=== PATIENT | female | born 1980 | race Caucasian/White ===

== ENCOUNTER 2016-10-28 17:57 | Emergency (ER) | payer BC ==
[2016-10-28] MEDS ORDERED: ORPHENADRINE 30 MG/ML 2 ML VIAL IM STA (19:00)
[2016-10-28] MEDS ORDERED: KETOROLAC 60 MG/2 ML VIAL IM STA (19:00)
--- NOTE | 2016-10-28 19:22 | ED ---
General Adult HPI - General Chief complaint: Abdominal Pain Stated complaint: left flank pain Time Seen by Provider: 10/28/16 18:43 Source: patient, RN notes reviewed Mode of arrival: ambulatory Limitations: no limitations - History of Present Illness Initial comments: 36-year-old male presents to the emergency Department chief complaint of right sided low back muscle spasm and pain. Patient states that this started just when she was moving some papers on her desk and slowly has continued to spasm. Patient states she sits still she does have some improvement to her symptoms but if she moves or stretches in a certain way the spasming will worsen. Patient states that it goes up and down the back. There is no radiation and into the legs. Patient denies any loss of bowel or bladder function. Patient states there is no falls traumas or injuries. Patient denies history of this in the past. Patient was concerned due to the spasming so she thought that she should be evaluated. Patient states she is not currently having any other symptoms at this time. Patient denies any recent fever, chills, shortness of breath, chest pain, abdominal pain, nausea vomiting, numbness or tingling, dysuria or hematuria, constipation or diarrhea, headaches or visual changes, or any other current symptoms. - Related Data Home Medications Medication Instructions Recorded Confirmed FLUoxetine HCL [PROzac] 40 mg PO DAILY 10/28/16 10/28/16 Multivitamins, Thera [Multivitamin 1 tab PO DAILY 10/28/16 10/28/16 (formulary)] Previous Rx's Medication Instructions Recorded Ibuprofen [Motrin] 600 mg PO Q6HR PRN #20 tab 10/28/16 Orphenadrine [Norflex] 100 mg PO Q12H #10 tablet.er 10/28/16 Allergies Allergy/AdvReac Type Severity Reaction Status Date / Time No Known Allergies Allergy Verified 10/28/16 19:00 Review of Systems ROS Statement: Those systems with pertinent positive or pertinent negative responses have been documented in the HPI. ROS Other: All systems not noted in ROS Statement are negative. Past Medical History Past Medical History: No Reported History History of Any Multi-Drug Resistant Organisms: None Reported Past Surgical History: Cholecystectomy, Tonsillectomy Past Psychological History: Depression Smoking Status: Never smoker Past Alcohol Use History: None Reported Past Drug Use History: None Reported General Exam - General Exam Comments Initial Comments: General: The patient is awake and alert, in no distress, and does not appear acutely ill. Eye: Pupils are equal, round. there is normal conjunctiva bilaterally. No signs of icterus. Ears, nose, mouth and throat: There are moist mucous membranes. Neck: The neck is supple, there is no tenderness. Cardiovascular: There is a regular rate and rhythm. No murmur, rub or gallop is appreciated. Respiratory: Lungs are clear to auscultation, respirations are non-labored, breath sounds are equal. No wheezes, stridor, rales, or rhonchi. Gastrointestinal: Soft, non-distended, non-tender abdomen without masses or organomegaly noted. There is no rebound or guarding present. No CVA tenderness. Bowel sounds are unremarkable. Back: There is no tenderness to palpation in the midline. There is some muscle 7 to the right. With range of motion patient does have the pain reiterated. Negative straight leg raise bilaterally. There is no obvious deformity. No rashes noted. Musculoskeletal: Normal ROM, no tenderness, There is no pedal edema. There is no calf tenderness or swelling. Sensation intact. Pulses equal bilaterally 2+. Neurological: CN II-XII intact, There are no obvious motor or sensory deficits. Coordination appears grossly intact. Speech is normal. Skin: Skin is warm and dry and no rashes or lesions are noted. Psychiatric: Cooperative, appropriate mood & affect, normal judgment. Limitations: no limitations Course Vital Signs 10/28/16 18:03 Temperature 99.6 F Pulse Rate 81 Respiratory 18 Rate Blood Pressure 109/75 O2 Sat by Pulse 97 Oximetry - Reevaluation(s) Reevaluation #1: 10/28/16 19:29 This time patient is reassessed and states she is feeling better and ready to go home. Medical Decision Making - Medical Decision Making 36-year-old female presents emergency Department chief complaint of lumbar muscle strain. At this time we was patient muscle axes for home. We discussed Motrin Tylenol for pain. Patient is in agreement plan all questions have been answered. This time the patient will be discharged home at this time. We discussed care follow-up return parameters all questions. They state [facility] management plan. They will be discharged home. Disposition Clinical Impression: Lumbar strain Disposition: HOME SELF-CARE Condition: Stable Instructions: Low Back Strain (ED), Lower Back Exercises (ED) Additional Instructions: Please use medication as discussed. Please follow up with family doctor if symptoms have not improved over the next two days. Please return to the emergency room if your symptoms increase or worsen or for any other concerns. Prescriptions: Ibuprofen [Motrin] 600 mg PO Q6HR PRN #20 tab PRN Reason: Pain Orphenadrine [Norflex] 100 mg PO Q12H #10 tablet.er Referrals: Filiberto Trujillo MD [Primary Care Provider] - 1-2 days Time of Disposition: 19:29
[2016-10-28 19:39] VITALS: BP 107/70; PULSE 63; RESP 16; TEMP 98
== END 2016-10-28 19:35 | disposition home or self-care (01) ==
LOC: EC 17:57
DX: S39.012A Strain of muscle, fascia and tendon of lower back, initial encounter (principal); F32.9 Major depressive disorder, single episode, unspecified; Z79.899 Other long term (current) drug therapy; X50.0XXA Overexertion from strenuous movement or load, initial encounter
CPT/HCPCS: 96372 ×3; 99283 ×2; J2360; J1885

== ENCOUNTER → 2017-09-16 | Outpatient (CLI) | payer BC ==
--- NOTE | 2017-09-16 14:55 | MM ---
Reason for exam: screening (asymptomatic). Baseline mammogram. History: Family history of breast cancer in maternal aunt at age 60. Took hormonal contraceptives beginning at age 13. Physical Findings: Nurse did not find any significant physical abnormalities on exam. MG Screening Mammo w CAD Bilateral CC and MLO view(s) were taken. There are scattered fibroglandular densities. There is no discrete abnormality. These results were verbally communicated with the patient and result sheet given to the patient on 09/16/17. ASSESSMENT: Negative, BI-RAD 1 RECOMMENDATION: Routine screening mammogram of both breasts in 1 year.
== END | disposition home or self-care (01) ==
LOC: RADMAMWWP 13:45
PROVIDERS: ATTEND Family Medicine
DX: Z12.31 Encounter for screening mammogram for malignant neoplasm of breast (principal)
CPT/HCPCS: 77067

== ENCOUNTER → 2018-09-23 | Outpatient (CLI) | payer BC ==
--- NOTE | 2018-09-25 07:56 | MM ---
Reason for exam: screening (asymptomatic). Last mammogram was performed 1 year ago. History: Family history of breast cancer in maternal aunt at age 60. Took hormonal contraceptives beginning at age 13. Physical Findings: A clinical breast exam by your physician is recommended on an annual basis and results should be correlated with mammographic findings. MG 3D Screening Mammo W/Cad Bilateral CC and MLO view(s) were taken. Prior study comparison: September 16, 2017, bilateral MG screening mammo w CAD. There are scattered fibroglandular densities. Lateral asymmetric density left breast is more defined and incompletely disperses on 3D. ASSESSMENT: Incomplete: need additional imaging evaluation, BI-RAD 0 RECOMMENDATION: Special view mammogram of the left breast. 3D If lesion persists on supplemental views, image directed ultrasound is recommended. [facility] will attempt to contact patient to return for supplemental views and ultrasound if indicated.
== END | disposition home or self-care (01) ==
LOC: RADMAMWWP 14:42
PROVIDERS: ATTEND Family Medicine
DX: Z12.31 Encounter for screening mammogram for malignant neoplasm of breast (principal)
CPT/HCPCS: 77063; 77067

== ENCOUNTER → 2019-04-21 | Outpatient (CLI) | payer BC ==
--- NOTE | 2019-04-21 11:55 | MM ---
Reason for exam: follow-up at short interval from prior study. Last mammogram was performed 7 months ago. History: Family history of breast cancer in maternal aunt at age 60. Took hormonal contraceptives beginning at age 13. Physical Findings: Nurse did not find any significant physical abnormalities on exam. MG 3D Diag Mammo W/Cad LT CC, MLO, and ML view(s) were taken of the left breast. Prior study comparison: September 29, 2018, left breast MG 3d work up w/cad LT. September 23, 2018, bilateral MG 3d screening mammo w/cad. There are scattered fibroglandular densities. These results were verbally communicated with the patient and result sheet given to the patient on 04/21/19. ASSESSMENT: Benign, BI-RAD 2 RECOMMENDATION: Return to routine screening mammogram schedule for both breasts. Back on schedule.
== END | disposition home or self-care (01) ==
LOC: RADMAMWWP 09:28
PROVIDERS: ATTEND Family Medicine
DX: R92.8 Other abnormal and inconclusive findings on diagnostic imaging of breast (principal)
CPT/HCPCS: 77061; 77065

== ENCOUNTER 2019-07-06 09:17 | Inpatient (IN) | payer BC ==
[2019-07-06] MEDS ORDERED: ONDANSETRON 4 MG/2 ML VIAL IVP STA (09:46)
[2019-07-06] MEDS ORDERED: SODIUM CHLORIDE 0.9% 1,000 ML IV ONE ×3 (09:46→17:28)
[2019-07-06] MEDS ORDERED: MORPHINE SULFATE 4 MG/ML SYRINGE IVP STA (09:46)
--- NOTE | 2019-07-06 09:50 | ED ---
Abdominal Pain HPI - General Source: patient Mode of arrival: ambulatory Limitations: no limitations <Meagahn Badillo - Last Filed: 07/06/19 13:06> <Mari Michael - Last Filed: 07/10/19 11:25> - General Chief Complaint: Abdominal Pain Stated Complaint: lower abd pain Time Seen by Provider: 07/06/19 09:28 - History of Present Illness Initial Comments: 38-year-old female presenting today for chief complaint of right lower quadrant abdominal pain. Patient states on Friday she developed a felt like upper abdominal cramping. She states it slowly migrated from the upper abdomen to lower bilaterally and then finally into the right lower quadrant. Patient states that she has not recorded fever at home but was told at an outpatient clinic that she presented to today that she had a low-grade fever. Patient sta audra that she has been nauseous she has had episodes where she is almost vomited but no active vomiting, patient states that she has had some loose stools. Patient denies melena, hematochezia. She states she has less appetite. Patient denies any URI symptoms. Patient has no other complaints. Patient HR elevated on arrival. No surgeon. (Meaghan Badillo) - Related Data Home Medications Medication Instructions Recorded Confirmed Acetaminophen Tab [Tylenol] 650 mg PO Q4H PRN 07/06/19 07/06/19 [id number] 2 tab PO Q4HR PRN 07/06/19 07/06/19 [Excedrin] Cholecalciferol [Vitamin D3 (25 1,000 unit PO HS 07/06/19 07/06/19 Mcg = 1000 Iu)] Ibuprofen [Motrin Ib] 800 mg PO Q8H PRN 07/06/19 07/06/19 Mag Hydrox/Aluminum Hyd/Simeth 30 ml PO DAILY PRN 07/06/19 07/06/19 [Mylanta Maximum Strength Liq] Simethicone [Gas-X] 375 mg PO Q4H PRN 07/06/19 07/06/19 Vortioxetine Hydrobromide 20 mg PO HS 07/06/19 07/06/19 [Trintellix] buPROPion XL [Wellbutrin XL] 150 mg PO HS 07/06/19 07/06/19 Previous Rx's Medication Instructions Recorded Docusate [Colace] 100 mg PO DAILY #30 capsule 07/08/19 HYDROcodone/APAP 5-325MG [Flushing 1 each PO Q6HR PRN #12 tab 07/08/19 5-325] Levofloxacin [Levaquin] 500 mg PO DAILY 3 Days #3 tab 07/08/19 Allergies Allergy/AdvReac Type Severity Reaction Status Date / Time No Known Allergies Allergy Verified 07/06/19 10:36 Review of Systems ROS Other: All systems not noted in ROS Statement are negative. <JustinoMeaghan L - Last Filed: 07/06/19 13:06> ROS Other: All systems not noted in ROS Statement are negative. <Mari Michael - Last Filed: 07/10/19 11:25> ROS Statement: Those systems with pertinent positive or pertinent negative responses have been documented in the HPI. Past Medical History Past Medical History: No Reported History History of Any Multi-Drug Resistant Organisms: None Reported Past Surgical History: Cholecystectomy, Tonsillectomy Past Psychological History: Anxiety, Depression Smoking Status: Never smoker Past Alcohol Use History: None Reported Past Drug Use History: None Reported - Past Family History Father Family Medical History: No Reported History Additional Family Medical History / Comment(s): Father is healthy Mother Family Medical History: No Reported History Additional Family Medical History / Comment(s): Mother is healthy <IshanjazmynMeaghan L - Last Filed: 07/06/19 13:06> General Exam Limitations: no limitations <Meaghan Badillo - Last Filed: 07/06/19 13:06> - General Exam Comments Initial Comments: General: The patient is awake and alert, appears uncomfortable Eye: +3 mm pupils are equal, round and reactive to light, extra-ocular movements are intact. No nystagmus. There is normal conjunctiva bilaterally. No signs of icterus. Ears, nose, mouth and throat: There are moist mucous membranes and no oral lesions. Neck: The neck is supple, there is no tenderness or JVD. Cardiovascular: There is a regular rate and rhythm. No murmur, rub or gallop is appreciated. Respiratory: Lungs are clear to auscultation, respirations are non-labored, breath sounds are equal. No wheezes, stridor, rales, or rhonchi. Gastrointestinal: Soft, non-distended, exquistely tender to palpation of the entire abdomen but particularly the RLQ without masses or organomegaly noted. There is rebound and guarding. Musculoskeletal: Normal ROM, no tenderness. Strength 5/5. Sensation intact. Radial pulses equal bilaterally 2+. Neurological: A&O x 3. CN II-XII intact grossly, There are no obvious motor or sensory deficits. Coordination appears grossly intact. Speech is normal. Skin: Skin is warm and dry and no rashes or lesions are noted. Psychiatric: Cooperative, appropriate mood & affect, normal judgment. (Meaghan Bdaillo) Course Vital Signs 07/06/19 07/06/19 09:19 11:47 Temperature 99.6 F 99.0 F Pulse Rate 129 H 76 Respiratory 18 16 Rate Blood Pressure 131/84 101/66 O2 Sat by Pulse 94 L 99 Oximetry Medical Decision Making - Lab Data Result diagrams: 07/06/19 09:38 07/06/19 09:38 <Meaghan Badillo - Last Filed: 07/06/19 13:06> - Lab Data Result diagrams: 07/07/19 05:44 07/08/19 06:02 <Mari Michael - Last Filed: 07/10/19 11:25> - Medical Decision Making 38-year-old female presenting with classic symptoms of appendicitis including no appetite, low-grade fever, migratory right lower quadrant abdominal pain. Patient did have signs of rebound tenderness and guarding. Leukocytosis. CT did not have distinct views of the appendix however there was appendicolith as well as secondary signs suggestive of acute appendicitis. Patient initiated on zosyn, blood culture pending. No surgeon request/recent previous. Dr Stephens accepted case. Pt last at yesterday evening > 12 hours. Pt transferred to floor in stable condition appearing well, nontoxic. Dr. Michael who spoke with Dr Stephens was agreeable to care plan. Pt is nonsmoker. (Meaghan Badillo) I was available for consultation in the emergency department. The history and physical exam were done by the midlevel provider. I was consulted for this patients care. I reviewed the case with the midlevel provider and based on t heir presentation of the patient, I agree with the assessment, medical decision making and plan of care as documented. I discussed the case with Dr. Stephens who accepted the admission of the patient. She will be made NPO for planned surgical intervention. Chart was dictated using [employer] dictation software. Attempts were made to correct any dictation errors however some typographical errors may persist. (Mari Michael) - Lab Data Lab Results 07/06/19 07/06/19 07/06/19 Range/Units 09:38 09:38 09:38 WBC 16.0 H (3.8-10.6) k/uL RBC 4.53 (3.80-5.40) m/uL Hgb 13.8 (11.4-16.0) gm/dL Hct 40.6 (34.0-46.0) % MCV 89.7 (80.0-100.0) fL MCH 30.4 (25.0-35.0) pg MCHC 33.9 (31.0-37.0) g/dL RDW 12.5 (11.5-15.5) % Plt Count 260 (150-450) k/uL Neutrophils % 84 % Lymphocytes % 9 % Monocytes % 5 % Eosinophils % 2 % Basophils % 0 % Neutrophils # 13.4 H (1.3-7.7) k/uL Lymphocytes # 1.4 (1.0-4.8) k/uL Monocytes # 0.8 (0-1.0) k/uL Eosinophils # 0.3 (0-0.7) k/uL Basophils # 0.0 (0-0.2) k/uL Sodium 135 L (137-145) mmol/L Potassium 3.9 (3.5-5.1) mmol/L Chloride 102 (98-107) mmol/L Carbon Dioxide 22 (22-30) mmol/L Anion Gap 11 mmol/L BUN 10 (7-17) mg/dL Creatinine 0.94 (0.52-1.04) mg/dL Est GFR (CKD-EPI)AfAm 88 (>60 ml/min/1.73 sqM) Est GFR (CKD-EPI)NonAf 76 (>60 ml/min/1.73 sqM) Glucose 116 H (74-99) mg/dL Plasma Lactic Acid Villa (0.7-2.0) mmol/L Calcium 8.9 (8.4-10.2) mg/dL Total Bilirubin 1.0 (0.2-1.3) mg/dL AST 23 (14-36) U/L ALT 23 (4-34) U/L Alkaline Phosphatase 90 (38-126) U/L Total Protein 7.6 (6.3-8.2) g/dL Albumin 4.3 (3.5-5.0) g/dL Amylase 64 (30-110) U/L Lipase 49 (23-300) U/L Urine Color Urine Appearance (Clear) Urine pH (5.0-8.0) Ur Specific Fenton (1.001-1.035) Urine Protein (Negative) Urine Glucose (UA) (Negative) Urine Ketones (Negative) Urine Blood (Negative) Urine Nitrite (Negative) Urine Bilirubin (Negative) Urine Urobilinogen (<2.0) mg/dL Ur Leukocyte Esterase (Negative) Urine RBC (0-5) /hpf Urine WBC (0-5) /hpf Ur Squamous Epith Cells (0-4) /hpf Urine Bacteria (None) /hpf Urine Mucus (None) /hpf Urine Yeast (Budding) (None) /hpf Urine HCG, Qual Not Detected (Not Detectd) 07/06/19 07/06/19 07/07/19 Range/Units 09:38 09:38 05:44 WBC 11.8 H (3.8-10.6) k/uL RBC 3.76 L (3.80-5.40) m/uL Hgb 11.4 (11.4-16.0) gm/dL Hct 34.2 (34.0-46.0) % MCV 90.9 (80.0-100.0) fL MCH 30.4 (25.0-35.0) pg MCHC 33.5 (31.0-37.0) g/dL RDW 12.4 (11.5-15.5) % Plt Count 219 (150-450) k/uL Neutrophils % 92 % Lymphocytes % 4 % Monocytes % 3 % Eosinophils % 0 % Basophils % 0 % Neutrophils # 10.9 H (1.3-7.7) k/uL Lymphocytes # 0.5 L (1.0-4.8) k/uL Monocytes # 0.3 (0-1.0) k/uL Eosinophils # 0.1 (0-0.7) k/uL Basophils # 0.0 (0-0.2) k/uL Sodium (137-145) mmol/L Potassium (3.5-5.1) mmol/L Chloride (98-107) mmol/L Carbon Dioxide (22-30) mmol/L Anion Gap mmol/L BUN (7-17) mg/dL Creatinine (0.52-1.04) mg/dL Est GFR (CKD-EPI)AfAm (>60 ml/min/1.73 sqM) Est GFR (CKD-EPI)NonAf (>60 ml/min/1.73 sqM) Glucose (74-99) mg/dL Plasma Lactic Acid Villa 0.9 (0.7-2.0) mmol/L Calcium (8.4-10.2) mg/dL Total Bilirubin (0.2-1.3) mg/dL AST (14-36) U/L ALT (4-34) U/L Alkaline Phosphatase (38-126) U/L Total Protein (6.3-8.2) g/dL Albumin (3.5-5.0) g/dL Amylase (30-110) U/L Lipase (23-300) U/L Urine Color Dark Brown Urine Appearance Turbid H (Clear) Urine pH 6.0 (5.0-8.0) Ur Specific Fenton 1.031 (1.001-1.035) Urine Protein 2+ H (Negative) Urine Glucose (UA) Negative (Negative) Urine Ketones 2+ H (Negative) Urine Blood Large H (Negative) Urine Nitrite Negative (Negative) Urine Bilirubin 1+ H (Negative) Urine Urobilinogen 2.0 (<2.0) mg/dL Ur Leukocyte Esterase Negative (Negative) Urine RBC 39 H (0-5) /hpf Urine WBC 6 H (0-5) /hpf Ur Squamous Epith Cells 49 H (0-4) /hpf Urine Bacteria Occasional H (None) /hpf Urine Mucus Many H (None) /hpf Urine Yeast (Budding) Rare H (None) /hpf Urine HCG, Qual (Not Detectd) 07/07/19 07/08/19 Range/Units 05:44 06:02 WBC (3.8-10.6) k/uL RBC (3.80-5.40) m/uL Hgb (11.4-16.0) gm/dL Hct (34.0-46.0) % MCV (80.0-100.0) fL MCH (25.0-35.0) pg MCHC (31.0-37.0) g/dL RDW (11.5-15.5) % Plt Count (150-450) k/uL Neutrophils % % Lymphocytes % % Monocytes % % Eosinophils % % Basophils % % Neutrophils # (1.3-7.7) k/uL Lymphocytes # (1.0-4.8) k/uL Monocytes # (0-1.0) k/uL Eosinophils # (0-0.7) k/uL Basophils # (0-0.2) k/uL Sodium 135 L 138 (137-145) mmol/L Potassium 4.2 3.8 (3.5-5.1) mmol/L Chloride 107 111 H (98-107) mmol/L Carbon Dioxide 21 L 20 L (22-30) mmol/L Anion Gap 7 7 mmol/L BUN 12 14 (7-17) mg/dL Creatinine 0.75 0.81 (0.52-1.04) mg/dL Est GFR (CKD-EPI)AfAm >90 >90 (>60 ml/min/1.73 sqM) Est GFR (CKD-EPI)NonAf >90 >90 (>60 ml/min/1.73 sqM) Glucose 128 H 99 (74-99) mg/dL Plasma Lactic Acid Villa (0.7-2.0) mmol/L Calcium 7.9 L 7.7 L (8.4-10.2) mg/dL Total Bilirubin 0.6 (0.2-1.3) mg/dL AST 18 (14-36) U/L ALT 18 (4-34) U/L Alkaline Phosphatase 63 (38-126) U/L Total Protein 5.5 L (6.3-8.2) g/dL Albumin 2.8 L (3.5-5.0) g/dL Amylase (30-110) U/L Lipase (23-300) U/L Urine Color Urine Appearance (Clear) Urine pH (5.0-8.0) Ur Specific Fenton (1.001-1.035) Urine Protein (Negative) Urine Glucose (UA) (Negative) Urine Ketones (Negative) Urine Blood (Negative) Urine Nitrite (Negative) Urine Bilirubin (Negative) Urine Urobilinogen (<2.0) mg/dL Ur Leukocyte Esterase (Negative) Urine RBC (0-5) /hpf Urine WBC (0-5) /hpf Ur Squamous Epith Cells (0-4) /hpf Urine Bacteria (None) /hpf Urine Mucus (None) /hpf Urine Yeast (Budding) (None) /hpf Urine HCG, Qual (Not Detectd) Disposition Is patient prescribed a controlled substance at d/c from ED?: No Time of Disposition: 11:07 Decision to Admit Reason: Admit from EC Decision Date: 07/06/19 Decision Time: 11:07 <Meaghan Badillo - Last Filed: 07/06/19 13:06> <Mari Michael - Last Filed: 07/10/19 11:25> Clinical Impression: Appendicitis, Abdominal pain Disposition: ADMITTED IP TO THIS HOSP Condition: Stable
[2019-07-06 09:55] LABS: Basophils % (A) 0 %; Eosinophils # (A) 0.3 k/uL (0-0.7); Eosinophils % (A) 2 %; HCT 40.6 % (34.0-46.0); HGB 13.8 gm/dL (11.4-16.0); Lymphocytes # (A) 1.4 k/uL (1.0-4.8); Lymphocytes % (A) 9 %; MCH 30.4 pg (25.0-35.0); MCHC 33.9 g/dL (31.0-37.0); MCV 89.7 fL (80.0-100.0); Mean Platelet Volume 7.9; Monocytes # (A) 0.8 k/uL (0-1.0); Monocytes % (A) 5 %; Neutrophils # (A) 13.4 k/uL (1.3-7.7); Neutrophils % (A) 84 %; Platelet Count 260 k/uL (150-450); RBC 4.53 m/uL (3.80-5.40); RDW 12.5 % (11.5-15.5)
[2019-07-06 10:04] LABS: Albumin 4.3 g/dL (3.5-5.0); Calcium 8.9 mg/dL (8.4-10.2); Potassium 3.9 mmol/L (3.5-5.1); Total Protein 7.6 g/dL (6.3-8.2)
[2019-07-06] MEDS ORDERED: PIPERACILLIN-TAZOBACTAM 3.375 GM in SODIUM CHLORIDE 0.9% 100 ML IVPB STA (10:05)
[2019-07-06 10:10] LABS: Appearance,Urine Turbid (Clear); Bacteria,Urine Occasional /hpf; Bilirubin,Urine 1+ (Negative); Blood,Urine Large (Negative); Budding Yeast,Urine Rare /hpf; Color,Urine Dark Brown; Glucose,Urine (UA) Negative (Negative); Ketones,Urine 2+ (Negative); Leukocyte Esterase,Urine Negative (Negative); Mucus,Urine Many /hpf; Nitrite,Urine Negative (Negative); Protein,Urine 2+ (Negative); RBC,Urine 39 /hpf (0-5); Specific Gravity,Urine 1.031 (1.001-1.035); Squamous Epithelial Cell,Urine 49 /hpf (0-4); WBC,Urine 6 /hpf (0-5)
[2019-07-06] MEDS: SODIUM CHLORIDE 0.9% 1,000 ML IV SCH ×4 (10:44→22:55)
--- NOTE | 2019-07-06 11:01 | CT ---
EXAMINATION TYPE: CT abdomen pelvis w con DATE OF EXAM: 07/06/2019 COMPARISON: NONE HISTORY: 38-year-old female RLQ pain TECHNIQUE: Contiguous axial scanning of the abdomen and pelvis following administration of 100 ml Iso krystin 300 IV contrast. Delayed images through the kidneys and coronal/sagittal reconstructions perform ed. CT DLP: 1679.2 mGycm Automated exposure control for dose reduction was used. FINDINGS: LUNG BASES: No significant abnormality is appreciated. LIVER/GB: Liver mildly enlarged at 18.0 cm. There may be mild fatty infiltration. No focal liver lesi on or biliary ductal dilatation. Gallbladder surgically absent. Portal venous system is patent. PANCREAS: No significant abnormality is seen. SPLEEN: No significant abnormality is seen. ADRENALS: No significant abnormality is seen. KIDNEYS: Approximate 3 nonobstructive left renal calculi measuring up to 3 mm. Symmetric uptake of co ntrast in both sides. LYMPH NODES: No mesenteric or retroperitoneal lymphadenopathy. BOWEL: There is a 1 cm calcification in the right lower quadrant suggestive of an appendicolith. The bowel anatomy is not clearly delineated due to clustered fluid-containing loops. There is some soft tissue thickening in this region and moderate inflammatory fat stranding. No abnormal fluid collectio n is identified. No extraluminal air is seen. PELVIS: Uterus is anteverted. Bilateral short devices are present. Both ovaries are visualized. 2.6 c m dominant follicle or functional cyst in left ovary. Mild cul-de-sac free fluid could be reactive to the right lower quadrant inflammation or could be physiologic. 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 Degenerative disc disease above and L4- L5 with bulging disc. IMPRESSION: 1. APPENDIX IS DIFFICULT TO DELINEATE DUE TO CLUSTERED AND FLUID-FILLED BOWEL LOOPS IN THE RIGHT LOWE R QUADRANT. SOME OF THESE LOOPS HAVE WALL THICKENING AND A 1 CM APPENDICOLITH IS PRESENT ALONG WITH M ODERATE INFLAMMATORY FAT STRANDING. UNDERLYING ACUTE APPENDICITIS IS HIGHLY SUSPECTED. NO FREE AIR OR ABSCESS IS SEEN. 2. MILD CUL-DE-SAC FREE FLUID COULD BE REACTIVE TO THE INFLAMMATION OR COULD BE PHYSIOLOGIC. 3. NONOBSTRUCTIVE LEFT RENAL CALCULI MEASURING UP TO 3 MM.
[2019-07-06] MEDS ORDERED: MORPHINE SULFATE 4 MG/ML SYRINGE IV PRN (11:08)
[2019-07-06] MEDS ORDERED: ONDANSETRON 4 MG/2 ML VIAL IVP PRN (11:08)
[2019-07-06] MEDS ORDERED: NALOXONE 0.4 MG/ML 1 ML VIAL IV PRN ×2 (11:08→18:05)
--- NOTE | 2019-07-06 14:36 | P.GSHP ---
History of Present Illness HISTORY OF PRESENTING ILLNESS This is a pleasant 38-year-old female past history significant for cholecystectomy and bunionectomy. She states last week early Friday morning she started noticing a discomfort in the epigastric region that was radiating across her entire abdomen and down into the pelvic region on the right side. She thought she was experiencing gas type pains and took some MiraLAX. She did have significant amounts of bowel movements however she continued to have discomfort in the right lower quadrant of her abdomen. This was associated with mild nausea and intermittent episodes of diaphoresis and chills at home. She did not check her temperature. She denies any vomiting. She continues to have mild discomfort in the right lower quadrant that is mildly alleviated by lying on her right side or applying pressure to the area. She currently denies any nausea and has no vomiting. She was initiated on IV fluids and given Zosyn in the emergency department. Laboratory data reviewed, WBC 16, neutrophils 13.4, sodium 135, potassium 3.9, creatinine 0.94, AST 23, ALT 23, alkaline phosphatase 90, amylase 64. Urine HCG negative. REVIEW OF SYSTEMS At the time of my exam: CONSTITUTIONAL: Denies fever or chills. CARDIOVASCULAR: Denies chest pain, shortness of breath, orthopnea, PND or palpitations. RESPIRATORY: Denies cough. GASTROINTESTINAL: Complains of abdominal pain. Denies diarrhea, constipation, nausea or vomiting. MUSCULOSKELETAL: Denies myalgias. NEUROLOGIC: Denies numbness, tingling or weakness. ENDOCRINE: Denies fatigue, weight change, polydipsia or polyurina. GENITOURINARY: Denies burning, hematuria or urgency with micturation. HEMATOLOGIC: Denies history of anemia or bleeding. PHYSICAL EXAMINATION Blood pressure 109/68 heart rate 84 afebrile and maintaining oxygen saturation on room air. CONSTITUTIONAL: No apparent distress. HEENT: Head is normocephalic. Pupils are equal, round. Sclerae anicteric. Mucous membranes of the mouth are moist. CHEST EXAMINATION: Lungs are clear to auscultation. No chest wall tenderness is noted on palpation or with deep breathing. HEART EXAMINATION: Regular rate and rhythm. S1, S2 heard. No murmurs, gallops or rub. ABDOMEN: Soft, nontender. Positive bowel sounds. EXTREMITIES: 2+ peripheral pulses, no lower extremity edema and no calf tenderness. NEUROLOGIC EXAMINATION: Patient is awake, alert and oriented x3. ASSESSMENT Acute appendicitis Leukocytosis Neutrophilia PLAN Patient has been reported for laparoscopic appendectomy with Dr. Stephens this afternoon. I have discussed the risks, benefits and alternative therapies for the above-mentioned procedure and for both sedation/analgesia as well as necessary blood product administration, if indicated, as they pertain to this patient. The patient has indicated understanding and acceptance of the risks and procedures discussed. Questions have been answered appropriately and she is agreeable to move forward with the above-stated procedure. Nurse Practitioner note has been reviewed, I agree with a documented findings and plan of care. Patient was seen and examined. Past Medical History Past Medical History: No Reported History Additional Past Medical History / Comment(s): Bronchitis as a child History of Any Multi-Drug Resistant Organisms: None Reported Past Surgical History: Cholecystectomy, Tonsillectomy Additional Past Surgical History / Comment(s): L foot bunionectomy, essure procedure Past Anesthesia/Blood Transfusion Reactions: No Reported Reaction Past Psychological History: Anxiety, Depression Smoking Status: Never smoker Past Alcohol Use History: None Reported Past Drug Use History: None Reported - Past Family History Father Family Medical History: No Reported History Additional Family Medical History / Comment(s): Father is healthy Mother Family Medical History: No Reported History Additional Family Medical History / Comment(s): Mother is healthy Medications and Allergies Home Medications Medication Instructions Recorded Confirmed Type Acetaminophen Tab [Tylenol] 650 mg PO Q4H PRN 07/06/19 07/06/19 History [id number] 2 tab PO Q4HR PRN 07/06/19 07/06/19 History [Excedrin] Cholecalciferol [Vitamin D3 (25 1,000 unit PO HS 07/06/19 07/06/19 History Mcg = 1000 Iu)] Ibuprofen [Motrin Ib] 800 mg PO Q8H PRN 07/06/19 07/06/19 History Mag Hydrox/Aluminum Hyd/Simeth 30 ml PO DAILY PRN 07/06/19 07/06/19 History [Mylanta Maximum Strength Liq] Simethicone [Gas-X] 375 mg PO Q4H PRN 07/06/19 07/06/19 History Vortioxetine Hydrobromide 20 mg PO HS 07/06/19 07/06/19 History [Trintellix] buPROPion XL [Wellbutrin Xl] 150 mg PO HS 07/06/19 07/06/19 History Allergies Allergy/AdvReac Type Severity Reaction Status Date / Time No Known Allergies Allergy Verified 07/06/19 10:36 Surgical - Exam Vital Signs Temp Pulse Resp BP Pulse Ox 99.6 F 129 H 18 131/84 94 L 07/06/19 09:19 07/06/19 09:19 07/06/19 09:19 07/06/19 09:19 07/06/19 09:19 Results - Labs 07/06/19 09:38 07/06/19 09:38 Abnormal Lab Results - Last 24 Hours (Table) 07/06/19 07/06/19 07/06/19 Range/Units 09:38 09:38 09:38 WBC 16.0 H (3.8-10.6) k/uL Neutrophils # 13.4 H (1.3-7.7) k/uL Sodium 135 L (137-145) mmol/L Glucose 116 H (74-99) mg/dL Urine Appearance Turbid H (Clear) Urine Protein 2+ H (Negative) Urine Ketones 2+ H (Negative) Urine Blood Large H (Negative) Urine Bilirubin 1+ H (Negative) Urine RBC 39 H (0-5) /hpf Urine WBC 6 H (0-5) /hpf Ur Squamous Epith Cells 49 H (0-4) /hpf Urine Bacteria Occasional H (None) /hpf Urine Mucus Many H (None) /hpf Urine Yeast (Budding) Rare H (None) /hpf Diabetes panel 07/06/19 Range/Units 09:38 Sodium 135 L (137-145) mmol/L Potassium 3.9 (3.5-5.1) mmol/L Chloride 102 (98-107) mmol/L Carbon Dioxide 22 (22-30) mmol/L BUN 10 (7-17) mg/dL Creatinine 0.94 (0.52-1.04) mg/dL Glucose 116 H (74-99) mg/dL Calcium 8.9 (8.4-10.2) mg/dL AST 23 (14-36) U/L ALT 23 (4-34) U/L Alkaline Phosphatase 90 (38-126) U/L Total Protein 7.6 (6.3-8.2) g/dL Albumin 4.3 (3.5-5.0) g/dL Calcium panel 07/06/19 Range/Units 09:38 Calcium 8.9 (8.4-10.2) mg/dL Albumin 4.3 (3.5-5.0) g/dL Pituitary panel 07/06/19 Range/Units 09:38 Sodium 135 L (137-145) mmol/L Potassium 3.9 (3.5-5.1) mmol/L Chloride 102 (98-107) mmol/L Carbon Dioxide 22 (22-30) mmol/L BUN 10 (7-17) mg/dL Creatinine 0.94 (0.52-1.04) mg/dL Glucose 116 H (74-99) mg/dL Calcium 8.9 (8.4-10.2) mg/dL Adrenal panel 07/06/19 Range/Units 09:38 Sodium 135 L (137-145) mmol/L Potassium 3.9 (3.5-5.1) mmol/L Chloride 102 (98-107) mmol/L Carbon Dioxide 22 (22-30) mmol/L BUN 10 (7-17) mg/dL Creatinine 0.94 (0.52-1.04) mg/dL Glucose 116 H (74-99) mg/dL Calcium 8.9 (8.4-10.2) mg/dL Total Bilirubin 1.0 (0.2-1.3) mg/dL AST 23 (14-36) U/L ALT 23 (4-34) U/L Alkaline Phosphatase 90 (38-126) U/L Total Protein 7.6 (6.3-8.2) g/dL Albumin 4.3 (3.5-5.0) g/dL
[2019-07-06] MEDS ORDERED: HYDROmorphone 0.5 MG/0.5 ML SYRINGE IVP PRN (15:38)
[2019-07-06] MEDS ORDERED: LIDOCAINE 1% (10MG/ML) FOR IV START INTRADERMA PRN (15:38)
[2019-07-06] MEDS ORDERED: ONDANSETRON 4 MG/2 ML VIAL ONE (17:28)
[2019-07-06] MEDS ORDERED: BUPIVACAIN-EPI 0.25%-1:200,000 30 ML VIAL SQ ONE (17:28)
[2019-07-06] MEDS ORDERED: KETOROLAC 30 MG/ML 1 ML VIAL ONE (17:28)
[2019-07-06] MEDS ORDERED: MIDAZOLAM 2 MG/2 ML VIAL ONE (17:28)
[2019-07-06] MEDS ORDERED: SUCCINYLCHOLINE CHLORIDE 100 MG/5 ML SYR IV ONE (17:28)
[2019-07-06] MEDS ORDERED: ceFAZolin 1,000 MG VIAL IVPB ONE (17:28)
[2019-07-06] MEDS ORDERED: fentaNYL (PF) 50 MCG/ML 2 ML AMP ONE (17:28)
[2019-07-06] MEDS ORDERED: PROPOFOL 10 MG/ML 20 ML VIAL IV ONE (17:28)
[2019-07-06] MEDS ORDERED: NEOSTIGMINE 1 MG/ML 10 ML VIAL ONE (17:28)
[2019-07-06] MEDS ORDERED: LACTATED RINGERS 1,000 ML IV ONE ×2 (17:53→18:05)
[2019-07-06] MEDS ORDERED: HYDROcodone/APAP 5-325MG 1 EACH TAB PO PRN (18:05)
[2019-07-06] MEDS ORDERED: ACETAMINOPHEN TAB 325 MG TAB PO PRN (18:05)
--- NOTE | 2019-07-06 18:05 | P.OP ---
Date of Procedure: 07/06/19 Preoperative Diagnosis: (Acute appendicitis Postoperative Diagnosis: Acute appendicitis with microperforation and abscess Procedure(s) Performed: Laparoscopic appendectomy Anesthesia: HARRIET Surgeon: Kevin Stephens Estimated Blood Loss (ml): 5 Pathology: other (Appendix) Condition: stable Disposition: PACU Description of Procedure: The patient's placed on the operating table in the supine position. The patient received general anesthesia. The abdomen was prepped and draped in the usual sterile fashion. The skin was anesthetized 1% local Xylocaine at the trocar sites. Using an 11 blade the skin was incised at the umbilicus. The umbilicus was grasped with a Giovana clamp and then a Veress needle was placed into the peritoneal cavity. Position of the Veress needle was confirmed with positive drop test. After adequate insufflation a 5 mm trocar was placed into the peritoneal cavity. The abdomen was further insufflated. And then the laparoscope was placed in the peritoneal cavity. Next a 5 mm trocar was placed in the midline suprapubic position. And then a 10 mm trocar was placed in the midline epigastric position. The patient was rotated with the right side up and in Trendelenburg. The appendix was visualized. The appendix appeared to be inflamed. There was evidence of microperforation. The abscess cavity was entered. This was aspirated. The appendix was grasped and then using the Harmonic scissors the mesoappendix was divided. A PDS Endoloop was then placed around the base of the appendix. And then the appendix was divided using Harmonic scissors. The appendix was placed into an Endo Catch and brought out through the 10 mm trocar site. The abdomen was irrigated. There is no bleeding seen. The trochars withdrawn. The skin was closed interrupted 3-0 Monocryl suture. Dermabond dressing was applied. Patient was sent to recovery room in stable condition.
[2019-07-06] MEDS: LACTATED RINGERS 1,000 ML IV SCH (18:34)
[2019-07-06] MEDS ORDERED: PIPERACILLIN-TAZOBACTAM 3.375 GM in SODIUM CHLORIDE 0.9% 100 ML IVPB SCH (21:47)
--- NOTE | 2019-07-06 21:48 | P.CONS ---
History of Present Illness - Reason for Consult Consult date: 07/06/19 Medical management Requesting physician: Kevin Stephens - Chief Complaint Abdominal pain - History of Present Illness Consultation: This is a pleasant 38-year-old patient of Dr. Cooley. Patient 4 days ago started of with pain in the upper abdomen. Patient progressed to go down to the right lower quadrant in the groin area. Progressively gotten worse. Patient expresses some chills and fevers at home. Also nausea. Presented to ER yesterday morning. Computed tomography scan of the abdomen showed moderate inflammation. Patient was taken to the operating room today. Discovered to have acute appendicitis with microperforation and abscess. Patient has a drain in place. Pain is now controlled. Review of systems: GEN.: Fever and chills EYES: None HEENT: None NECK: None RESPIRATORY: None CARDIOVASCULAR: None GASTROINTESTINAL: As above, occasional heartburn GENITOURINARY: None MUSCULOSKELETAL: None LYMPHATICS: None HEMATOLOGICAL: None PSYCHIATRY: None NEUROLOGICAL: Trouble sleeping Past medical history to include: Anxiety depression Social history: Does not smoke or drink alcohol. . Homemaker Physical examination: VITAL SIGNS: 99.9, 83, 16, 105/69, 95% on 2 L GENERAL: [BMI 37.9, laying in bed not in distress. EYES: Pupils equal. Conjunctiva normal. HEENT: External appearance of nose and ears normal, oral cavity grossly normal. NECK: JVD not raised; masses not palpable. HEART: First and second heart sounds are normal; no edema. LUNGS: Respiratory rate normal; clear to auscultation. ABDOMEN: Soft, tender, suprapubic drain, liver spleen not palpable, no masses palpable. PSYCH: Alert and oriented x3; mood and affect normal. NEUROLOGICAL: Cranial nerves grossly intact; no facial asymmetry, power and sensation grossly intact. LYMPHATICS: No lymph nodes palpable in the axilla and neck INVESTIGATIONS, reviewed in the clinical context: White count 16 hemoglobin 13.8 platelets 260 progression 3.9 creatinine 0.94 Computed tomography scan of the abdomen-evidence of appendix inflammation, left kidney stone Assessment: -Acute appendicitis with perforation and abscess status post appendectomy and has a drain in place -Obesity BMI 37.9 -GERD -Chronic idiopathic insomnia -Depression and anxiety not otherwise specified Plan: Patient getting IV fluids. We'll give Lovenox for DVT prophylaxis. Pain control was place. Patient's antidepressant anxiety medications resumed. We'll add Zosyn. Also Flagyl. Care was discussed with the patient question were answered. Thank you Dr. Stephens Past Medical History Past Medical History: No Reported History Additional Past Medical History / Comment(s): Bronchitis as a child History of Any Multi-Drug Resistant Organisms: None Reported Past Surgical History: Cholecystectomy, Tonsillectomy Additional Past Surgical History / Comment(s): L foot bunionectomy, essure procedure Past Anesthesia/Blood Transfusion Reactions: No Reported Reaction Past Psychological History: Anxiety, Depression Smoking Status: Never smoker Past Alcohol Use History: None Reported Past Drug Use History: None Reported - Past Family History Father Family Medical History: No Reported History Additional Family Medical History / Comment(s): Father is healthy Mother Family Medical History: No Reported History Additional Family Medical History / Comment(s): Mother is healthy Medications and Allergies Home Medications Medication Instructions Recorded Confirmed Type Acetaminophen Tab [Tylenol] 650 mg PO Q4H PRN 07/06/19 07/06/19 History [id number]-[id number]-[id number] 2 tab PO Q4HR PRN 07/06/19 07/06/19 History [Excedrin] Cholecalciferol [Vitamin D3 (25 1,000 unit PO HS 07/06/19 07/06/19 History Mcg = 1000 Iu)] Ibuprofen [Motrin Ib] 800 mg PO Q8H PRN 07/06/19 07/06/19 History Mag Hydrox/Aluminum Hyd/Simeth 30 ml PO DAILY PRN 07/06/19 07/06/19 History [Mylanta Maximum Strength Liq] Simethicone [Gas-X] 375 mg PO Q4H PRN 07/06/19 07/06/19 History Vortioxetine Hydrobromide 20 mg PO HS 07/06/19 07/06/19 History [Trintellix] buPROPion XL [Wellbutrin Xl] 150 mg PO HS 07/06/19 07/06/19 History Allergies Allergy/AdvReac Type Severity Reaction Status Date / Time No Known Allergies Allergy Verified 07/06/19 10:36 Physical Exam Vitals: Vital Signs Temp Pulse Pulse Pulse Resp BP BP 07/06/19 19:49 75 97/63 07/06/19 19:23 92 96/68 07/06/19 18:53 99.9 F H 83 16 105/69 07/06/19 18:39 83 16 106/59 07/06/19 18:25 79 16 112/67 07/06/19 18:10 97.5 F L 70 20 115/67 07/06/19 12:39 98.8 F 84 17 109/68 07/06/19 11:47 99.0 F 76 16 101/66 07/06/19 09:19 99.6 F 129 H 18 131/84 Pulse Ox 07/06/19 19:49 95 07/06/19 19:23 94 L 07/06/19 18:53 95 07/06/19 18:39 97 07/06/19 18:25 98 07/06/19 18:10 97 07/06/19 12:39 94 L 07/06/19 11:47 99 07/06/19 09:19 94 L Intake and Output 07/06/19 07/06/19 07/06/19 06:59 14:59 22:59 Intake Total 400 1100 Balance 400 1100 Intake: IV 1100 Intake, IV Titration 400 Amount Sodium Chloride 0.9% 1, 400 000 ml @ 100 mls/hr IV . Q10H IZA Rx#:[id number] Other: # Voids 1 Weight 113.035 kg Results CBC & Chem 7: 07/06/19 09:38 07/06/19 09:38 Labs: Abnormal Lab Results - Last 24 Hours (Table) 07/06/19 07/06/19 07/06/19 Range/Units 09:38 09:38 09:38 WBC 16.0 H (3.8-10.6) k/uL Neutrophils # 13.4 H (1.3-7.7) k/uL Sodium 135 L (137-145) mmol/L Glucose 116 H (74-99) mg/dL Urine Appearance Turbid H (Clear) Urine Protein 2+ H (Negative) Urine Ketones 2+ H (Negative) Urine Blood Large H (Negative) Urine Bilirubin 1+ H (Negative) Urine RBC 39 H (0-5) /hpf Urine WBC 6 H (0-5) /hpf Ur Squamous Epith Cells 49 H (0-4) /hpf Urine Bacteria Occasional H (None) /hpf Urine Mucus Many H (None) /hpf Urine Yeast (Budding) Rare H (None) /hpf
[2019-07-06] MEDS: VORTIOXETINE HYDROBROMIDE 20 MG TABLET PO SCH (22:37)
[2019-07-06] MEDS: buPROPion XL 150 MG TAB.ER.24H PO SCH (22:37)
[2019-07-06] MEDS: metroNIDAZOLE-NS PMX 500 MG in SALINE 1 100ML.BAG IVPB SCH (22:39)
[2019-07-06] MEDS: KETOROLAC 30 MG/ML 1 ML VIAL IVP SCH (22:56)
[2019-07-07] MEDS: KETOROLAC 30 MG/ML 1 ML VIAL IVP SCH ×5 (01:20→23:18)
[2019-07-07] MEDS: metroNIDAZOLE-NS PMX 500 MG in SALINE 1 100ML.BAG IVPB SCH ×5 (04:45→23:19)
[2019-07-07] MEDS: PIPERACILLIN-TAZOBACTAM 3.375 GM in SODIUM CHLORIDE 0.9% 100 ML IVPB SCH ×3 (05:25→21:37)
[2019-07-07 05:58] LABS: Basophils % (A) 0 %; Eosinophils # (A) 0.1 k/uL (0-0.7); Eosinophils % (A) 0 %; HCT 34.2 % (34.0-46.0); HGB 11.4 gm/dL (11.4-16.0); Lymphocytes # (A) 0.5 k/uL (1.0-4.8); Lymphocytes % (A) 4 %; MCH 30.4 pg (25.0-35.0); MCHC 33.5 g/dL (31.0-37.0); MCV 90.9 fL (80.0-100.0); Mean Platelet Volume 7.7; Monocytes # (A) 0.3 k/uL (0-1.0); Monocytes % (A) 3 %; Neutrophils # (A) 10.9 k/uL (1.3-7.7); Neutrophils % (A) 92 %; Platelet Count 219 k/uL (150-450); RBC 3.76 m/uL (3.80-5.40); RDW 12.4 % (11.5-15.5); WBC 11.8 k/uL (3.8-10.6)
[2019-07-07 06:09] LABS: ALT 18 U/L (4-34); AST 18 U/L (14-36); African American GFR (CKD) >90 (>60 ml/min/1.73 sqM); Albumin 2.8 g/dL (3.5-5.0); Alkaline Phosphatase 63 U/L (38-126); Anion Gap 7 mmol/L; Blood Urea Nitrogen 12 mg/dL (7-17); Calcium 7.9 mg/dL (8.4-10.2); Carbon Dioxide 21 mmol/L (22-30); Chloride 107 mmol/L (98-107); Glucose 128 mg/dL (74-99); Non-African American GFR(CKD) >90 (>60 ml/min/1.73 sqM); Potassium 4.2 mmol/L (3.5-5.1); Sodium 135 mmol/L (137-145); Total Bilirubin 0.6 mg/dL (0.2-1.3); Total Protein 5.5 g/dL (6.3-8.2)
[2019-07-07] MEDS: SODIUM CHLORIDE 0.9% 1,000 ML IV SCH ×4 (08:24→21:38)
[2019-07-07] MEDS: ENOXAPARIN 40 MG/0.4 ML SYRINGE SQ SCH (08:38)
[2019-07-07 10:22] VITALS: BMI 37.8
--- NOTE | 2019-07-07 13:40 | P.PN ---
Subjective HISTORY OF PRESENTING ILLNESS Patient is seen and examined resting currently sitting up in bed in no acute distress. She denies symptoms of abdominal pain. She has no nausea or vomiting. She has been up to the restroom and urinated once. No bowel movement or passing gas. She tolerated a clear liquid breakfast this morning. Laboratories reviewed, WBC 11.8, hemoglobin 11.4, platelets 219, sodium 135, potassium 4.2, creatinine 0.75. 115 mL of serosanguineous drainage from the RONEN drain. PHYSICAL EXAMINATION Blood pressure 99/69 heart rate 63 afebrile maintaining oxygen saturation on nasal cannula CONSTITUTIONAL: No apparent distress. HEENT: Head is normocephalic. Pupils are equal, round. Sclerae anicteric. Mucous membranes of the mouth are moist. ABDOMEN: Soft, nontender. RONEN drain in place with stressing at the site clean dry and intact. Serosanguineous fluid noted in the RONEN drain. NEUROLOGIC EXAMINATION: Patient is awake, alert and oriented x3. ASSESSMENT Acute appendicitis with microperforation and abscess, status post arthroscopic appendectomy. Postoperative day #1. Leukocytosis Neutrophilia PLAN Advance diet as tolerated. Continue antibiotics and pain control. Drain care per nursing staff. The above impression and plan of care have been discussed and directed by the signing physician. Ashley Kumari, nurse practitioner, acting as scribe for signing physician. Objective - Vital Signs Vital signs: Vital Signs Temp 98.6 F 07/07/19 05:21 Pulse 63 07/07/19 08:00 Resp 16 07/07/19 08:00 BP 99/69 07/07/19 05:21 Pulse Ox 95 07/07/19 05:21 Intake & Output 07/06/19 07/07/19 07/07/19 18:59 06:59 18:59 Intake Total 1500 375 Output Total 115 Balance 1500 260 Weight 113.035 kg Intake: IV 1100 Intake, IV Titration 400 375 Amount Lactated Ringers 1,000 ml 375 @ 125 mls/hr IV .Q8H ONE Rx#:[id number] Sodium Chloride 0.9% 1, 400 000 ml @ 100 mls/hr IV . Q10H IZA Rx#:[id number] Output: Drainage 115 Abdomen 115 Other: Voiding Method Toilet Toilet # Voids 1 1 - Labs CBC & Chem 7: 07/07/19 05:44 07/07/19 05:44 Labs: Abnormal Lab Results - Last 24 Hours (Table) 07/06/19 07/06/19 07/07/19 Range/Units 09:38 09:38 05:44 WBC 11.8 H (3.8-10.6) k/uL RBC 3.76 L (3.80-5.40) m/uL Neutrophils # 10.9 H (1.3-7.7) k/uL Lymphocytes # 0.5 L (1.0-4.8) k/uL Sodium 135 L (137-145) mmol/L Carbon Dioxide (22-30) mmol/L Glucose 116 H (74-99) mg/dL Calcium (8.4-10.2) mg/dL Total Protein (6.3-8.2) g/dL Albumin (3.5-5.0) g/dL Urine Appearance Turbid H (Clear) Urine Protein 2+ H (Negative) Urine Ketones 2+ H (Negative) Urine Blood Large H (Negative) Urine Bilirubin 1+ H (Negative) Urine RBC 39 H (0-5) /hpf Urine WBC 6 H (0-5) /hpf Ur Squamous Epith Cells 49 H (0-4) /hpf Urine Bacteria Occasional H (None) /hpf Urine Mucus Many H (None) /hpf Urine Yeast (Budding) Rare H (None) /hpf 07/07/19 Range/Units 05:44 WBC (3.8-10.6) k/uL RBC (3.80-5.40) m/uL Neutrophils # (1.3-7.7) k/uL Lymphocytes # (1.0-4.8) k/uL Sodium 135 L (137-145) mmol/L Carbon Dioxide 21 L (22-30) mmol/L Glucose 128 H (74-99) mg/dL Calcium 7.9 L (8.4-10.2) mg/dL Total Protein 5.5 L (6.3-8.2) g/dL Albumin 2.8 L (3.5-5.0) g/dL Urine Appearance (Clear) Urine Protein (Negative) Urine Ketones (Negative) Urine Blood (Negative) Urine Bilirubin (Negative) Urine RBC (0-5) /hpf Urine WBC (0-5) /hpf Ur Squamous Epith Cells (0-4) /hpf Urine Bacteria (None) /hpf Urine Mucus (None) /hpf Urine Yeast (Budding) (None) /hpf
[2019-07-07] MEDS: LACTATED RINGERS 1,000 ML IV SCH (16:21)
[2019-07-07] MEDS: buPROPion XL 150 MG TAB.ER.24H PO SCH (21:37)
[2019-07-07] MEDS: VORTIOXETINE HYDROBROMIDE 20 MG TABLET PO SCH (21:37)
--- NOTE | 2019-07-07 22:09 | P.PN ---
Progress Note - Text Progress Note Date: 07/07/19 - Chief Complaint Abdominal pain Consultation: This is a pleasant 38-year-old patient of Dr. Cooley. Patient 4 days ago started of with pain in the upper abdomen. Patient progressed to go down to the right lower quadrant in the groin area. Progressively gotten worse. Patient expresses some chills and fevers at home. Also nausea. Presented to ER yesterday morning. Computed tomography scan of the abdomen showed moderate inflammation. Patient was taken to the operating room today. Discovered to have acute appendicitis with microperforation and abscess. Patient has a drain in place. Pain is now controlled. Admitted with--Acute appendicitis with perforation and abscess status post appendectomy and has a drain in place. Today-propped up in bed. Some lower abdominal pain. No nausea vomiting. On a clear liquid diet. No flatus. Bloodstained drainage over 100 mL per shift Review of systems: Was done for constitutional, cardiovascular, GI, pulmonary. relevant finding as above Active Medications Acetaminophen (Tylenol Tab) 650 mg PO Q6HR PRN PRN Reason: Mild Pain or Fever >= 100.5 Hydrocodone Bitart/Acetaminophen ([place] 5-325) 2 each PO Q6HR PRN PRN Reason: Moderate to Severe Pain Bupropion HCl (Wellbutrin Xl) 150 mg PO HS [facility] Last Admin: 07/07/19 21:37 Dose: 150 mg Documented by: Enoxaparin Sodium (Lovenox) 40 mg SQ DAILY [facility] Last Admin: 07/07/19 08:38 Dose: 40 mg Documented by: Sodium Chloride (Saline 0.9%) 1,000 mls @ 100 mls/hr IV .Q10H [facility] Last Admin: 07/07/19 17:21 Dose: 100 mls/hr Documented by: Sodium Chloride (Saline 0.9%) 1,000 mls @ 100 mls/hr IV .Q10H [facility] Last Admin: 07/07/19 21:38 Dose: 100 mls/hr Documented by: Lactated Ringer's (Lactated Ringers) 1,000 mls @ 20 mls/hr IV .Q24H [facility] Last Admin: 07/07/19 16:21 Dose: Not Given Documented by: Piperacillin Sod/Tazobactam (Sod 3.375 gm/ Sodium Chloride) 100 mls @ 25 mls/hr IVPB Q8H [facility] Last Admin: 07/07/19 21:37 Dose: 25 mls/hr Documented by: Metronidazole 500 mg/ IV (Solution) 100 mls @ 100 mls/hr IVPB Q6H [facility] Last Admin: 07/07/19 17:20 Dose: 100 mls/hr Documented by: Ketorolac Tromethamine (Toradol) 30 mg IVP Q6H [facility] Stop: 07/08/19 12:16 Last Admin: 07/07/19 17:22 Dose: 30 mg Documented by: Lidocaine HCl (.Xylocaine 1% Inj (10mg/Ml) For Iv Start) 0.1 ml INTRADERMA PER PROTOCOL PRN PRN Reason: IV Start Morphine Sulfate (Morphine Sulfate (Inj)) 4 mg IV Q4HR PRN PRN Reason: Severe Pain Last Admin: 07/06/19 13:08 Dose: 4 mg Documented by: Naloxone HCl (Narcan) 0.2 mg IV Q2M PRN PRN Reason: Opioid Reversal Naloxone HCl (Narcan) 0.2 mg IV Q2M PRN PRN Reason: Opioid Reversal Ondansetron HCl (Zofran) 4 mg IVP Q8HR PRN PRN Reason: Nausea And Vomiting Vortioxetine (Trintellix) 20 mg PO HS [facility] Last Admin: 07/07/19 21:37 Dose: 20 mg Documented by: Physical examination: VITAL SIGNS: 98.1, 71, 17, 79/44, 93% on room air GENERAL: Sitting up in bed, not in distress. EYES: Pupils equal. Conjunctiva normal. HEENT: External appearance of nose and ears normal, oral cavity grossly normal. NECK: JVD not raised; masses not palpable. HEART: First and second heart sounds are normal; no edema. LUNGS: Respiratory rate normal; clear to auscultation. ABDOMEN: Soft, tender, suprapubic drain, liver spleen not palpable, no masses palpable. PSYCH: Alert and oriented x3; mood and affect normal. INVESTIGATIONS, reviewed in the clinical context: White count 8 0.8 Hemoglobin 11.4 Progression 4.2 Creatinine 0.75 Previous Testing White count 16 hemoglobin 13.8 platelets 260 progression 3.9 creatinine 0.94 Computed tomography scan of the abdomen-evidence of appendix inflammation, left kidney stone Assessment: -Acute appendicitis with perforation and abscess status post appendectomy and has a drain in place -Obesity BMI 37.9 -GERD -Chronic idiopathic insomnia -Depression and anxiety not otherwise specified Plan: Continue with IV Zosyn, Flagyl. IV fluids. Blood pressures running low. On clear liquids. Discussed with patient. Thank you Dr. Stephens
[2019-07-08] MEDS: SODIUM CHLORIDE 0.9% 1,000 ML IV SCH ×2 (02:59→04:35)
[2019-07-08 04:19] VITALS: TEMP 98.5
[2019-07-08] MEDS: metroNIDAZOLE-NS PMX 500 MG in SALINE 1 100ML.BAG IVPB SCH ×2 (04:44→11:53)
[2019-07-08] MEDS: PIPERACILLIN-TAZOBACTAM 3.375 GM in SODIUM CHLORIDE 0.9% 100 ML IVPB SCH ×3 (05:47→11:55)
[2019-07-08] MEDS: KETOROLAC 30 MG/ML 1 ML VIAL IVP SCH ×2 (05:49→11:54)
[2019-07-08 06:40] LABS: African American GFR (CKD) >90 (>60 ml/min/1.73 sqM); Anion Gap 7 mmol/L; Blood Urea Nitrogen 14 mg/dL (7-17); Calcium 7.7 mg/dL (8.4-10.2); Carbon Dioxide 20 mmol/L (22-30); Chloride 111 mmol/L (98-107); Glucose 99 mg/dL (74-99); Non-African American GFR(CKD) >90 (>60 ml/min/1.73 sqM); Potassium 3.8 mmol/L (3.5-5.1); Sodium 138 mmol/L (137-145)
[2019-07-08] MEDS: ENOXAPARIN 40 MG/0.4 ML SYRINGE SQ SCH (08:36)
[2019-07-08 11:27] VITALS: BP 99/59; PULSE 89; RESP 16
--- NOTE | 2019-07-08 14:36 | P.DS ---
Providers Date of admission: 07/08/19 09:16 Attending physician: Kevin Stephens Consults: 07/06/19 18:05 Consult Physician Routine Consulting Provider: Anthony Preston Consult Reason/Comments: Medical management Do you want consulting provider notified?: Yes, Notify in am Primary care physician: Filiberto Macias [facility] Course: This is a 38-year-old female who presented to the emergency department with symptoms of abdominal discomfort and was found to have acute appendicitis. She underwent laparoscopic appendectomy with Dr. Stephens. During the course of the procedure was noted that she had a microperforation of her appendix. RONEN drain was placed. She was discharged home this morning in stable condition with drain in place. She had no complaints of abdominal pain, nausea, vomiting or diarrhea. Vital signs and stable throughout this admission. She was also being followed by Dr. parker or internal medicine. Follow up appointment in the office in one week. Discharged home with a small amount of narcotic pain medication for moderate to severe pain along with a stool softener. Instructions provided for strip and milking of her drain. Patient Condition at Discharge: Stable Plan - Discharge Summary Discharge Rx Participant: No New Discharge Prescriptions: New Docusate [Colace] 100 mg PO DAILY #30 capsule HYDROcodone/APAP 5-325MG [[place] 5-325] 1 each PO Q6HR PRN #12 tab PRN Reason: Moderate To Severe Pain Levofloxacin [Levaquin] 500 mg PO DAILY 3 Days #3 tab Continue Mag Hydrox/Aluminum Hyd/Simeth [Mylanta Maximum Strength Liq] 30 ml PO DAILY PRN PRN Reason: Gi Upset Ibuprofen [Motrin Ib] 800 mg PO Q8H PRN PRN Reason: Pain Or Fever > 100.5 [id number]-[id number] [id number] [Excedrin] 2 tab PO Q4HR PRN PRN Reason: Migraine Headache Acetaminophen Tab [Tylenol] 650 mg PO Q4H PRN PRN Reason: Pain Or Fever > 100.5 buPROPion XL [Wellbutrin XL] 150 mg PO HS Vortioxetine Hydrobromide [Trintellix] 20 mg PO HS Cholecalciferol [Vitamin D3 (25 Mcg = 1000 Iu)] 1,000 unit PO HS Simethicone [Gas-X] 375 mg PO Q4H PRN PRN Reason: Gi Upset Discharge Medication List Acetaminophen Tab [Tylenol] 650 mg PO Q4H PRN 07/06/19 [History] Bhmwawr-[id number]-[id number] [id number] [Excedrin] 2 tab PO Q4HR PRN 07/06/19 [History] Cholecalciferol [Vitamin D3 (25 Mcg = 1000 Iu)] 1,000 unit PO HS 07/06/19 [History] Ibuprofen [Motrin Ib] 800 mg PO Q8H PRN 07/06/19 [History] Mag Hydrox/Aluminum Hyd/Simeth [Mylanta Maximum Strength Liq] 30 ml PO DAILY PRN 07/06/19 [History] Simethicone [Gas-X] 375 mg PO Q4H PRN 07/06/19 [History] Vortioxetine Hydrobromide [Trintellix] 20 mg PO HS 07/06/19 [History] buPROPion XL [Wellbutrin XL] 150 mg PO HS 07/06/19 [History] Docusate [Colace] 100 mg PO DAILY #30 capsule 07/08/19 [Rx] HYDROcodone/APAP 5-325MG [[place] 5-325] 1 each PO Q6HR PRN #12 tab 07/08/19 [Rx] Levofloxacin [Levaquin] 500 mg PO DAILY 3 Days #3 tab 07/08/19 [Rx] Follow up Appointment(s)/Referral(s): Rehana Landin NPC [REFERRING] - 07/12/19 10:30 am Kevin Stephens MD [STAFF PHYSICIAN] - 07/15/19 1:40 pm Patient Instructions/Handouts: Hydrocodone/Acetaminophen (By mouth), Laxative, Stool Softeners (By mouth), Levofloxacin (By mouth), Lorne-Kidd Drain Care (DC), Laparoscopic Appendectomy (DC) Activity/Diet/Wound Care/Special Instructions: Soft bland diet
--- NOTE | 2019-07-08 22:02 | P.PN ---
Progress Note - Text Progress Note Date: 07/08/19 - Chief Complaint Abdominal pain Consultation: This is a pleasant 38-year-old patient of Dr. Cooley. Patient 4 days ago started of with pain in the upper abdomen. Patient progressed to go down to the right lower quadrant in the groin area. Progressively gotten worse. Patient expresses some chills and fevers at home. Also nausea. Presented to ER yesterday morning. Computed tomography scan of the abdomen showed moderate inflammation. Patient was taken to the operating room today. Discovered to have acute appendicitis with microperforation and abscess. Patient has a drain in place. Pain is now controlled. Admitted with--Acute appendicitis with perforation and abscess status post appendectomy and has a drain in place. Today-feeling much better. Pain control. No nausea vomiting. Did tolerate a light diet. Review of systems: Was done for constitutional, cardiovascular, GI, pulmonary. relevant finding as above Current medications reviewed in today's electronic records Physical examination: VITAL SIGNS: 98.5, 89, 16, 99/59, 99% on room air GENERAL: Sitting up in bed, comfortable EYES: Pupils equal. Conjunctiva normal. HEENT: External appearance of nose and ears normal, oral cavity grossly normal. NECK: JVD not raised; masses not palpable. HEART: First and second heart sounds are normal; no edema. LUNGS: Respiratory rate normal; clear to auscultation. ABDOMEN: Soft, tender, suprapubic drain, liver spleen not palpable, no masses palpable. PSYCH: Alert and oriented x3; mood and affect normal. INVESTIGATIONS, reviewed in the clinical context: Potassium 3.8 creatinine 0.81 Previous Testing White count 16 hemoglobin 13.8 platelets 260 progression 3.9 creatinine 0.94 Computed tomography scan of the abdomen-evidence of appendix inflammation, left kidney stone Assessment: -Acute appendicitis with perforation and abscess status post appendectomy and has a drain in place -Obesity BMI 37.9 -GERD -Chronic idiopathic insomnia -Depression and anxiety not otherwise specified Plan: Continue current medication treatment plan. Doing better. Follow with PCP upon discharge. Soft bland diet. Surgeries discharging the patient on Levaquin. Thank you Dr. Stephens
== END 2019-07-08 12:25 | disposition home or self-care (01) | DRG 340 ==
LOC: EC 09:17 → 5NMEDONC 11:10 → OBSVTOIN 07-08 09:16
PROVIDERS: ADMIT Surgery; ATTEND Surgery
PROC: 0DTJ4ZZ Resection of Appendix, Percutaneous Endoscopic Approach (ICD-10-PCS; principal; 2019-07-06 16:00)
DX: K35.33 Acute appendicitis with perforation, localized peritonitis, and gangrene, with abscess (principal); E66.9 Obesity, unspecified; F32.9 Major depressive disorder, single episode, unspecified; F41.9 Anxiety disorder, unspecified; F51.01 Primary insomnia; K21.9 Gastro-esophageal reflux disease without esophagitis; K38.1 Appendicular concretions; Z68.37 Body mass index [BMI] 37.0-37.9, adult; Z79.899 Other long term (current) drug therapy; Z90.49 Acquired absence of other specified parts of digestive tract
CPT/HCPCS: 36415; 74177; 80048; 80053; 81001; 81025; 82150; 83605; 83690; 85025; 87040; 88304; 96361; 96365; 96375; 99285

== ENCOUNTER → 2019-12-17 | Outpatient (CLI) | payer BC ==
--- NOTE | 2019-12-18 12:17 | US ---
EXAMINATION TYPE: US pelvis complete transvag DATE OF EXAM: 12/17/2019 COMPARISON: CT 07/06/19 CLINICAL HISTORY: N92.0 Menorrhagia. TECHNIQUE: Transvaginal (TV) and Transabdominal (TA) . Transabdominal sonographic images of the pel vis were acquired. Transvaginal sonographic images were medically necessary to better assess the fol lowing anatomy: Ovaries Date of LMP: 12/11/19 EXAM MEASUREMENTS: Uterus: 10.7 x 5.8 x 8.2 cm Endometrial Stripe: 1.7 cm Right Ovary: 3.0 x 2.4 x 2.7 cm Left Ovary: 3.0 x 2.2 x 2.8 cm 1. Uterus: Anteverted Fibroid Rt UT 3.0 x 2.5 x 2.9 cm 2. Endometrium: wnl 3. Right Ovary: wnl 4. Left Ovary: wnl 5. Bilateral Adnexa: wnl 6. Posterior cul-de-sac: wnl Heterogeneous anteverted prominent uterus. Technologist cabrera 2.5 cm cyst somewhat poorly defined het erogeneous slightly hypoechoic right intrauterine intramural fibroid. Endometrium measures up to 17 m m abnormally thickened for postmenopausal female. No free fluid. Both ovaries seen and felt within normal limits. IMPRESSION: Small intramural fibroid felt present not clearly seen on recent CT. Abnormal thickening of the endometrium is confirmed. Consider dilatation and curettage to further evaluate.
== END | disposition home or self-care (01) ==
LOC: RADUSWWP 16:04
PROVIDERS: ATTEND Obstetrics & Gynecology
DX: R93.89 Abnormal findings on diagnostic imaging of other specified body structures (principal); N92.0 Excessive and frequent menstruation with regular cycle
CPT/HCPCS: 76830; 76856

== ENCOUNTER 2020-01-24 06:20 | Day surgery (SDC) | payer BC ==
[2020-01-18 15:52] VITALS: BMI 32.5
--- NOTE | 2020-01-23 16:21 | P.HPOB ---
History of Present Illness H&P Date: 01/23/20 Chief Complaint: Menorrhagia with regular cycle, ASCUS with +HR HPV This is a 39 y.o. female, 4, para 4, who presents for dilatation and curettage with hysteroscopy and loop electrocautery excision procedure with colposcopy due to menorrhagia with regular cycle and atypical squamous cells of undetermined significance with positive high risk HPV. She has previously had a cryocautery for POWER in the past and continues to have abnormal pap smears. She complains of heavy menses occuring every 4-6 weeks, lasting 6 days with 2 days very heavy. She sometimes bleeds through a pad and tampon and has to change every 1-2 hours. She has previously had an Essure tubal ligation. OB Hx: . History of 4 vaginal deliveries. Pharmacy Services Representative Hx: No hx of STDs other than abnormal pap smears. Social Hx: . Homemaker. Review of Systems Constitutional: Reports fatigue, Reports weight gain Eyes: denies blurred vision, denies pain Ears, nose, mouth and throat: Reports headache, Denies sore throat Cardiovascular: Denies chest pain, Denies shortness of breath Gastrointestinal: Denies abdominal pain, Denies diarrhea, Denies nausea, Denies vomiting Genitourinary: Reports menorrhagia, Reports stress incontinence Menstruation: Reports menses variable, Reports period heavy Musculoskeletal: Reports low back pain Integumentary: Denies pruritus, Denies rash Neurological: Denies numbness, Denies weakness Psychiatric: Reports anxiety, Reports depression, Reports difficulty concentrating, Reports insomnia, Reports irritability Endocrine: Reports flushing Past Medical History Past Medical History: GERD/Reflux Additional Past Medical History / Comment(s): Bronchitis as a child. Hx seizures with one - Eclampsia. Hx of skull fracture due to fall History of Any Multi-Drug Resistant Organisms: None Reported Past Surgical History: Appendectomy, Cholecystectomy, Orthopedic Surgery, Tonsillectomy, Tubal Ligation Additional Past Surgical History / Comment(s): Left foot bunionectomy, Essure procedure. Past Anesthesia/Blood Transfusion Reactions: No Reported Reaction Past Psychological History: Anxiety, Depression Smoking Status: Former smoker Past Alcohol Use History: Rare Additional Past Alcohol Use History / Comment(s): Pt started smoking as a teen and quit in 1999. Past Drug Use History: None Reported - Past Family History Father Family Medical History: No Reported History Additional Family Medical History / Comment(s): Father is healthy. Mother Family Medical History: Diabetes Mellitus, Hypertension, Thyroid Disorder Medications and Allergies Home Medications Medication Instructions Recorded Confirmed Type Acetaminophen Tab [Tylenol] 650 mg PO Q4H PRN 07/06/19 01/24/20 History Phhtsrv-Uvkg-Qper [id number] 2 tab PO Q4HR PRN 07/06/19 01/24/20 History [Excedrin] Cholecalciferol [Vitamin D3 (25 1,000 unit PO HS 07/06/19 01/24/20 History Mcg = 1000 Iu)] Ibuprofen [Motrin Ib] 800 mg PO Q8H PRN 07/06/19 01/24/20 History Simethicone [Gas-X] 375 mg PO Q4H PRN 07/06/19 01/24/20 History Vortioxetine Hydrobromide 20 mg PO HS 07/06/19 01/24/20 History [Trintellix] buPROPion XL [Wellbutrin XL] 300 mg PO HS 07/06/19 01/24/20 History Docusate [Colace] 100 mg PO DAILY #30 capsule 07/08/19 01/24/20 Rx Amitriptyline HCl [Elavil] 1 tab PO HS 01/24/20 01/24/20 History Allergies Allergy/AdvReac Type Severity Reaction Status Date / Time No Known Allergies Allergy Verified 01/24/20 06:49 Exam Osteopathic Statement: *. No significant issues noted on an osteopathic structural exam other than those noted in the History and Physical/Consult. HEENT: within normal limits Heart: regular rate and rhythm Lungs: clear to auscultation bilaterally Abdomen: soft, non-tender Pelvic: uterus small anteverted, non-tender, no adnexal masses or tenderness Extremities: neg. Dawit's Results Pelvic US-uterus 10.7 x 5.8 x 8.2 cm, endometrium 1.7 cm, normal ovaries, small intramural fibroid, 2.5 cm. Assessment and Plan (1) Menorrhagia with regular cycle Current Visit: No Status: Acute Code(s): N92.0 - EXCESSIVE AND FREQUENT MENSTRUATION WITH REGULAR CYCLE SNOMED Code(s): 504911631 (2) ASCUS with positive high risk HPV cervical Current Visit: No Status: Acute Code(s): R87.610 - ATYP SQUAM CELL OF UNDET SIGNFC CYTO SMR CRVX (ASC-US); R87.810 - CERVICAL HIGH RISK HPV DNA TEST POSITIVE SNOMED Code(s): 97402699 Plan: Proceed with colposcopy with loop electrocautery excision procedure and dilatation and curettage with hysteroscopy and Novasure endometrial ablation. I have discussed the risks, benefits, and alternative therapies for the above- mentioned procedure and for both sedation/anesthesia as well as necessary blood products administration, if indicated, as they pertain to this patient. The patient has indicated her understanding and acceptance of the risks and procedures discussed.
[~2020-01-24 06:20] MED LIST: DEXAMETHASONE SOD PHOSPHATE 10 MG/ML 1 ML VIAL IV ONE; HYDROmorphone 0.5 MG/0.5 ML SYRINGE IVP PRN; LACTATED RINGERS 1,000 ML IV SCH; MIDAZOLAM 2 MG/2 ML VIAL IV PRN; ONDANSETRON 4 MG/2 ML VIAL IVP ONE; Pre Op ABX Message 1 EACH MISC MISCELLANE ONE; SCOPOLAMINE 1.5MG/72HR PATCH TRANSDERM ONE
[2020-01-24] MEDS ORDERED: MIDAZOLAM 2 MG/2 ML VIAL ONE (07:32)
[2020-01-24] MEDS ORDERED: BUPIVACAINE (PF) 0.5% 30 ML VIAL SQ ONE (07:32)
[2020-01-24] MEDS ORDERED: FERRIC SUBSULFATE (MONSELS) JAR TOPICAL ONE (07:32)
[2020-01-24] MEDS ORDERED: LIDOCAINE 1% INJ 10MG/ML (20 ML MDV) ONE (07:32)
[2020-01-24] MEDS ORDERED: LIDOCAINE 1%-EPI 1:100,000 20 ML VIAL SQ ONE (07:32)
[2020-01-24] MEDS ORDERED: ACETIC ACID 15 DROPS/ML DROPS MISCELLANE ONE (07:32)
[2020-01-24] MEDS ORDERED: PROPOFOL 10 MG/ML 20 ML VIAL IV ONE (07:32)
[2020-01-24] MEDS ORDERED: fentaNYL (PF) 50 MCG/ML 2 ML AMP ONE (07:32)
[2020-01-24] MEDS ORDERED: KETOROLAC 15 MG/ML 1 ML VIAL ONE (07:32)
--- NOTE | 2020-01-24 08:23 | P.OP ---
Date of Procedure: 01/24/20 Preoperative Diagnosis: Menorrhagia with regular cycle Atypical squamous cells of undetermined significance with positive high risk HPV Postoperative Diagnosis: Same Procedure(s) Performed: Dilation and curettage with hysteroscopy and NovaSure endometrial ablation Colposcopy with loop electrocautery excision procedure Anesthesia: HARRIET Surgeon: Emma Carvalho Estimated Blood Loss (ml): 20 Pathology: other (#1-Ectocervix with 12 o'clock position marked with a black suture and 6 o'clock position marked with a white suture, #2-endometrial curettings) Condition: stable Disposition: same day Indications for Procedure: This is a 39 y.o. female, 4, para 4, who presents for dilatation and curettage with hysteroscopy and loop electrocautery excision procedure with colposcopy due to menorrhagia with regular cycle and atypical squamous cells of undetermined significance with positive high risk HPV. She has previously had a cryocautery for POWER in the past and continues to have abnormal pap smears. She complains of heavy menses occuring every 4-6 weeks, lasting 6 days with 2 days very heavy. She sometimes bleeds through a pad and tampon and has to change every 1-2 hours. She has previously had an Essure tubal ligation. Operative Findings: Cervix entire transition zone is visualized. No specific abnormalities are seen with acetic acid or Lugol solution. No mosaicism is seen. Cervix is sounded to 3 cm. Uterus is sounded to 11 cm. Upon hysteroscopy, some polypoid type tissue is noted. Both tubal ostia are visualized. A large amount of endometrial curettings are obtained. No adnexal masses are palpated. Uterus is in the anteverted position. Description of Procedure: The patient is taken to the operating room where she is placed in the dorsal lithotomy position. She is prepped and draped in the normal sterile fashion. Her bladder is drained with a catheter. A coated bivalve speculum was placed in the patient's vagina. Colposcopy is performed using a blue light. The cervix is swabbed with 5% acetic acid solution. No abnormalities are seen. The same area swabbed with Lugol solution. No further abnormalities are seen. The transition zone is seen entirely. Next the cervix is circumferentially injected with a 50-50 mixture of 1% lidocaine with epinephrine and half percent Marcaine. Using a spinal needle this was injected circumferentially around the cervix. Approximately 7 mL were used. Next a large loop was used with 45 W of cutting power to swipe from left to right along the upper border. The same procedure was carried out on the lower border. The upper piece is marked with a stitch at 12:00 with a black stitch. The lower piece is marked at 6 o'clock position with a white stitch. Next ball-tipped cautery was used to cauterize the left behind. At this point gloves are changed speculum was removed and a weighted speculum was placed. A right angle retractor is used to visualize the cervix. The anterior lip of the cervix is grasped with a single-tooth tenaculum. Cervix is sounded to 3 cm. Uterus is sounded to 11 cm. Cervix is gently dilated with Kidd dilators until a hysteroscope could be passed. Hysteroscopy is performed using normal saline. The above noted findings are noted. Next a polyp forceps is introduced. A large amount of tissue was obtained. Next medium-sized size sharp curette was placed. A large amount of endometrial curettings were obtained. Next NovaSure array was inserted into the endometrial cavity. Length was set at 6.5 cm and width was determined to be 4.5 cm. Next cavity assessment was completed and passed on the first try. Next NovaSure array was fired at 161 W for 65 seconds. Next the array was removed, inspected and then discarded. Next the hysteroscope was reinserted. Uniform charring was noted. Pictures were taken. Hysteroscope was removed. Next Monsel solution was applied to the cervix. Good hemostasis is noted. Single-tooth tenaculum was removed from the anterior lip of the cervix. Minimal bleeding was noted. All other instruments removed from the vagina. Sponge counts were correct. Patient is taken to recovery room in stable condition.
[2020-01-24 08:31] VITALS: TEMP 97.2
[2020-01-24 08:48] VITALS: RESP 16
[2020-01-24 09:33] VITALS: BP 100/61; PULSE 83
== END 2020-01-24 09:51 | disposition home or self-care (01) ==
LOC: OR 06:20
PROVIDERS: ATTEND Obstetrics & Gynecology
DX: R87.612 Low grade squamous intraepithelial lesion on cytologic smear of cervix (LGSIL) (principal); K21.9 Gastro-esophageal reflux disease without esophagitis; Z87.09 Personal history of other diseases of the respiratory system; Z87.81 Personal history of (healed) traumatic fracture; Z90.49 Acquired absence of other specified parts of digestive tract; Z98.890 Other specified postprocedural states; Z98.51 Tubal ligation status; F41.9 Anxiety disorder, unspecified; F32.9 Major depressive disorder, single episode, unspecified; Z87.891 Personal history of nicotine dependence; Z83.3 Family history of diabetes mellitus; Z82.49 Family history of ischemic heart disease and other diseases of the circulatory system; Z83.49 Family history of other endocrine, nutritional and metabolic diseases; Z79.899 Other long term (current) drug therapy
CPT/HCPCS: 81025; 88305; 88307; 58563; 57461; J2250; J1100; J2405; J2001; J3010; J1885; J2704

== ENCOUNTER → 2020-02-04 | Outpatient (CLI) | payer BC ==
--- NOTE | 2020-02-07 12:01 | MM ---
Reason for exam: screening (asymptomatic). Last mammogram was performed 9 months ago. History: Family history of breast cancer in maternal aunt at age 60. Took hormonal contraceptives beginning at age 13. Physical Findings: A clinical breast exam by your physician is recommended on an annual basis and results should be correlated with mammographic findings. MG 3D Screening Mammo W/Cad Bilateral CC and MLO view(s) were taken. Prior study comparison: April 21, 2019, left breast MG 3d diag mammo w/cad LT. September 29, 2018, left breast MG 3d work up w/cad LT. There are scattered fibroglandular densities. There is no discrete abnormality. ASSESSMENT: Negative, BI-RAD 1 RECOMMENDATION: Routine screening mammogram of both breasts in 1 year.
== END | disposition home or self-care (01) ==
LOC: RADMAMWWP 16:09
PROVIDERS: ATTEND Family Medicine
DX: Z12.31 Encounter for screening mammogram for malignant neoplasm of breast (principal)
CPT/HCPCS: 77063; 77067

== ENCOUNTER → 2021-02-23 | Outpatient (CLI) | payer BC ==
--- NOTE | 2021-02-26 12:46 | MM ---
Reason for exam: screening (asymptomatic). Last mammogram was performed 1 year and 1 month ago. History: Family history of breast cancer in maternal aunt at age 60. Took hormonal contraceptives beginning at age 13. Physical Findings: A clinical breast exam by your physician is recommended on an annual basis and results should be correlated with mammographic findings. MG 3D Screening Mammo W/Cad Bilateral CC and MLO view(s) were taken. Prior study comparison: February 04, 2020, bilateral MG 3d screening mammo w/cad. April 21, 2019, left breast MG 3d diag mammo w/cad LT. The breast tissue is heterogeneously dense. This may lower the sensitivity of mammography. There is no discrete abnormality. No significant changes when compared with prior studies. ASSESSMENT: Negative, BI-RAD 1 RECOMMENDATION: Routine screening mammogram of both breasts in 1 year.
== END | disposition home or self-care (01) ==
LOC: RADMAMWWP 13:48
PROVIDERS: ATTEND Family Medicine
DX: Z12.31 Encounter for screening mammogram for malignant neoplasm of breast (principal); Z80.3 Family history of malignant neoplasm of breast
CPT/HCPCS: 77063; 77067

== ENCOUNTER → 2022-02-28 | Outpatient (CLI) | payer BC ==
--- NOTE | 2022-03-01 18:19 | MM ---
Reason for Exam: Screening (asymptomatic). Last mammogram was performed 1 year(s) and 1 month(s) ago. Patient History: Menarche at age 11. First Full-Term at age 12. Hormonal Contraceptives, from age 13 until age 24. Maternal aunt had breast cancer, age 60. Last menstrual period: 02/12/2022 Risk Values: Catarina 5 year model risk: 0.5%. NCI Lifetime model risk: 7.1%. Prior Study Comparison: 04/21/2019 Left Diagnostic Mammogram, [facility]. 02/04/2020 Bilateral Screening Mammogram, [facility]. 02/23/2021 Bilateral Screening Mammogram, [facility]. Tissue Density: There are scattered fibroglandular densities. Findings: Analyzed By CAD. There is no suspicious group of microcalcifications or new suspicious mass in either breast. Overall Assessment: Negative, BI-RAD 1 Management: Screening Mammogram of both breasts in 1 year. 1. Patient should continue monthly self breast exams. 2. A clinical breast exam by your physician is recommended on an annual basis. 3. This exam should not preclude additional follow-up of suspicious palpable abnormalities. Electronically signed and approved by: Stacy Higgins M.D. Radiologist
== END | disposition home or self-care (01) ==
LOC: RADMAMWWP 13:32
PROVIDERS: ATTEND Family Medicine
DX: Z12.31 Encounter for screening mammogram for malignant neoplasm of breast (principal); Z80.3 Family history of malignant neoplasm of breast
CPT/HCPCS: 77063; 77067

== ENCOUNTER → 2023-04-07 | Outpatient (CLI) | payer BC ==
--- NOTE | 2023-04-07 20:56 | MM ---
Reason for Exam: Screening (asymptomatic). Last mammogram was performed 1 year(s) and 1 month(s) ago. Patient History: Menarche at age 11. First Full-Term at age 12. Premenopausal. Hormonal Contraceptives, from age 13 until age 24. Maternal aunt had breast cancer, age 60. Risk Values: Catarina 5 year model risk: 0.6%. NCI Lifetime model risk: 7.1%. Prior Study Comparison: 02/04/2020 Bilateral Screening Mammogram, [facility]. 02/23/2021 Bilateral Screening Mammogram, [facility]. 02/28/2022 Bilateral MG 3D screening mammo w/cad, [facility]. Tissue Density: There are scattered fibroglandular densities. Findings: Analyzed By CAD. Pattern appears symmetrical and stable. No significant interval change is evident. No suspicious groups of microcalcifications, spiculated or lobular masses, architectural distortion or other secondary signs of malignancy are mammographically apparent. Overall Assessment: Benign, BI-RAD 2 Management: Screening Mammogram of both breasts in 1 year. A negative mammogram report should not preclude additional follow up of suspicious palpable abnormalities. Patient should continue monthly self breast exam. A clinical breast exam by your physician is recommended on an annual basis and results should be correlated with mammographic findings. Electronically signed and approved by: Jin Rodríguez D.O. Radiologis
== END | disposition home or self-care (01) ==
LOC: RADMAMWWP 07:42
PROVIDERS: ATTEND Family Medicine
DX: Z12.31 Encounter for screening mammogram for malignant neoplasm of breast (principal); Z80.3 Family history of malignant neoplasm of breast
CPT/HCPCS: 77063; 77067

== ENCOUNTER → 2024-07-19 | Outpatient (CLI) | payer BC ==
--- NOTE | 2024-07-19 12:09 | MM ---
Reason for Exam: Screening (asymptomatic). Last mammogram was performed 1 year(s) and 3 month(s) ago. Patient History: Menarche at age 11. First Full-Term at age 12. Premenopausal. Hormonal Contraceptives, from age 13 until age 24. Maternal aunt had breast cancer, age 60. Last menstrual period: 07/16/2024 Risk Values: Catarina 5 year model risk: 0.6%. NCI Lifetime model risk: 7.0%. Prior Study Comparison: 09/23/2018 Bilateral Screening Mammogram, [facility]. 09/29/2018 Left Diagnostic Mammogram, [facility]. 04/21/2019 Left Diagnostic Mammogram, [facility]. 02/04/2020 Bilateral Screening Mammogram, [facility]. 02/23/2021 Bilateral Screening Mammogram, [facility]. 02/28/2022 Bilateral MG 3D screening mammo w/cad, [facility]. 04/07/2023 Bilateral MG 3D screening mammo w/cad, [facility]. Tissue Density: The breasts are heterogeneously dense, which may obscure small masses. Findings: Analyzed By CAD. There is no suspicious group of microcalcifications or new suspicious mass in either breast. Overall Assessment: Negative, BI-RAD 1 Management: Screening Mammogram of both breasts in 1 year. . Patient should continue monthly self-breast exams. A clinical breast exam by your physician is recommended on an annual basis. This exam should not preclude additional follow-up of suspicious palpable abnormalities. Note on Catarina scores and lifetime risk: 1. A Catarina score greater than 3% is considered moderate risk. If this is the case, consider specialist referral to assess eligibility for a risk reducing agent. 2. If overall lifetime risk for the development of breast cancer is 20% or higher, the patient may qualify for future screening with alternating mammogram and breast MRI. [facility], , 07/19/2024 12:06 PM. Electronically signed and approved by: Donal Rodriguez M.D. Radiologis
== END | disposition home or self-care (01) ==
LOC: RADMAMWWP 10:13
PROVIDERS: ATTEND Family Medicine
DX: Z12.31 Encounter for screening mammogram for malignant neoplasm of breast (principal); R92.333 Mammographic heterogeneous density, bilateral breasts; Z92.0 Personal history of contraception; Z80.3 Family history of malignant neoplasm of breast
CPT/HCPCS: 77063; 77067